=== PATIENT | male | born 1965 | race Caucasian/White ===

== ENCOUNTER 2021-08-23 00:29 | Emergency (ER) | payer OTHER ==
[~2021-08-23] VITALS: Ht 162.6 cm; Wt 102.0 kg
[2021-08-23] MEDS ORDERED: meclizine 12.5mg tablet PO ONE (01:45)
[2021-08-23] MEDS ORDERED: ondansetron 4mg rapidly disintigrating tab PO ONE (01:45)
[2021-08-23] MEDS ORDERED: ONDA4TAB6 PO (02:26)
[2021-08-23] MEDS ORDERED: MECL-226 PO (02:26)
[2021-08-23 02:48] VITALS: BP 128/69
== END 2021-08-23 04:00 | disposition home or self-care (01) ==
LOC: ER 00:31
DX: H81.11 Benign paroxysmal vertigo, right ear (principal); Z79.899 Other long term (current) drug therapy
CPT/HCPCS: 93005; 99283; J8597

== ENCOUNTER 2021-08-28 11:11 | Emergency (ER) | payer OTHER ==
[~2021-08-28] VITALS: Ht 162.6 cm; Wt 104.5 kg
[~2021-08-28 11:11] MED LIST: MECL-226 PO; ONDA4TAB6 PO
--- NOTE | 2021-08-28 11:40 | NUR ---
Pt's [id number] Damari Pagan's phone number is [phone]. She would like to come in to speak on behalf of the pt due to her stating that he is nonresponsive. At this time the pt is located in the hallway waiting a room with the EMT and Shop Worker that brought him here.
--- NOTE | 2021-08-28 12:15 | NUR ---
DR GASCA AT BEDSIDE.
[2021-08-28] MEDS ORDERED: normal saline 1000ml 1,000 ML IV ONE (12:35)
[2021-08-28] MEDS ORDERED: meclizine 12.5mg tablet PO ONE (12:35)
[2021-08-28 13:09] LABS: BASOPHILS % (AUTO) 0.3 % (0-1); EOSINOPHILS % (AUTO) 0.1 % (0-6); HEMOGLOBIN 15.5 g/dl (14.0-17.9); LYMPHOCYTES # (AUTO) 0.9 X10'3 (1.1-4.8); LYMPHOCYTES % (AUTO) 6.1 % (21-51); MEAN CORPUSCULAR HEMOGLOBIN 29.2 PG (27.0-31.0); MEAN CORPUSCULAR HGB CONC 33.7 g/dL (33.0-36.5); MEAN CORPUSCULAR VOLUME 86.7 FL (78-98); MONOCYTES # (AUTO) 0.7 X10'3 (0-0.9); MONOCYTES % (AUTO) 4.6 % (2-12); NEUTROPHILS # (AUTO) 13.1 X10'3 (1.8-7.7); NEUTROPHILS % (AUTO) 88.9 % (42-75); PLATELET COUNT 190 X10'3 (140-440); RED CELL DISTRIBUTION WIDTH 13.1 % (11.5-14.5); WHITE BLOOD COUNT 14.8 X10'3 (4.5-11.0)
[2021-08-28 13:25] LABS: ALBUMIN 3.9 G/DL (3.4-5.0); ANION GAP 7 (8-16); BLOOD UREA NITROGEN 23 MG/DL (7-18); BUN/CREATININE RATIO 18.7 (5.4-32.0); CALCIUM 9.4 MG/DL (8.5-10.1); CHLORIDE 108 MMOL/L (99-107); CREATININE 1.23 MG/DL (0.60-1.10); GLUCOSE 118 MG/DL (70-104); POTASSIUM 3.8 MMOL/L (3.5-5.1); SODIUM 143 MMOL/L (135-145); TOTAL CARBON DIOXIDE 27.7 MMOL/L (24-32); eGFR 61 ML/MIN
--- NOTE | 2021-08-28 14:11 | NUR ---
dr yoo at [facility].
[2021-08-28] MEDS ORDERED: diazepam inj 5 MG/ML inj. IV ONE (14:20)
--- NOTE | 2021-08-28 15:34 | NUR ---
pt walked to the restroom with son ,no distress noted.
[2021-08-28] MEDS ORDERED: DIAZ5TAB4 PO (16:11)
[2021-08-28 16:27] VITALS: BP 136/81
== END 2021-08-28 16:30 | disposition home or self-care (01) ==
LOC: ER 11:11
DX: R42 Dizziness and giddiness (principal); R11.10 Vomiting, unspecified; H91.91 Unspecified hearing loss, right ear; Z79.899 Other long term (current) drug therapy
CPT/HCPCS: 36415; 70450; 80048; 85025; 96361; 96374; 99284; J3360; J7030; J8597